=== PATIENT | male | born 1980 | race African-American/Black ===

== ENCOUNTER 2016-12-22 19:18 | Inpatient (IN) | payer OTHER ==
[~2016-12-22] VITALS: Ht 188 cm; Wt 148.8 kg
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
[~2016-12-22 19:18] MED LIST: APAP500 PO; C-500500 MG PO; CEFDINIR300 MG PO; CEFTIN 250 MG250 MG PO; CERTAGEN TABLE1 EACH PO; CIPRO PO; CIPROFLOXACIN500 M1 PO; COLACE100 MG PO; HYDROCODON-ACE1 EAC7 PO; LEVAQUIN 500 M500 M2 PO; NOHOMEMEDICATIONS; NORCO 5-325 TA1 EACH PO; ORAZINC220 MG PO; POLYETHYLENE GLY1 G1 PO
[2016-12-22 19:20] VITALS: BP 136/77
[2016-12-22] MEDS ORDERED: KEFLEX500 M1 PO (19:39)
[2016-12-22 20:00] VITALS: BP 197/81
[2016-12-22 20:14] LABS: URINE BILIRUBIN 1+ (Negative); URINE BLOOD 1+ (Negative); URINE COLOR YELLOW; URINE GLUCOSE-RANDOM* NEGATIVE (Negative); URINE KETONES TRACE (Negative); URINE LEUKOCYTES-REFLEX 3+ (Negative); URINE PROTEIN (DIPSTICK) 1+ (Negative)
[2016-12-22 20:21] LABS: CASTS None Seen /LPF (None Seen); CRYSTALS None Seen /LPF (None Seen); SQUAMOUS 4-10 Moderate /LPF (0-3); URINE RBC 0-2 Rare /HPF (0-2); URINE WBC-REFLEX >25 Many /HPF (0-5)
[2016-12-22 20:32] LABS: ABSOLUTE NEUTROPHILS 9.7 thou/uL (1.4-8.2); BASOPHILS 0.7 % (0.0-2.0); EOSINOPHILS 1.6 % (0.0-3.0); HEMATOCRIT 37.1 % (42.0-52.0); HEMOGLOBIN 12.1 gm/dL (14.0-18.0); LYMPHOCYTES 15.3 % (24.0-44.0); MANUAL DIFF NO; MCH 27.2 pg (26.0-34.0); MCHC 32.5 g/dL (28.0-37.0); MCV 83.6 fL (80.0-100.0); MONOCYTES 6.3 % (1.0-8.0); PLATELET COUNT 244 thou/uL (150-400); POLYS 76.1 % (36.0-66.0); RBC 4.44 mil/uL (4.50-6.00); RDW 17.7 % (10.5-14.5); WBC 12.8 thou/uL (4.0-11.0)
[2016-12-22 20:38] LABS: CREATININE 0.9 mg/dL (0.6-1.3)
[2016-12-22 22:29] VITALS: BP 134/64
[2016-12-22 23:10] VITALS: BP 133/66
[2016-12-23 03:53] VITALS: BP 113/53
[2016-12-23 08:55] VITALS: BP 106/69
[2016-12-23 11:15] LABS: ABSOLUTE NEUTROPHILS 7.4 thou/uL (1.4-8.2); BASOPHILS 0.6 % (0.0-2.0); EOSINOPHILS 1.8 % (0.0-3.0); HEMOGLOBIN 11.2 gm/dL (14.0-18.0); LYMPHOCYTES 19.7 % (24.0-44.0); MCH 26.8 pg (26.0-34.0); MCHC 32.1 g/dL (28.0-37.0); MCV 83.5 fL (80.0-100.0); MONOCYTES 8.3 % (1.0-8.0); PLATELET COUNT 236 thou/uL (150-400); POLYS 69.6 % (36.0-66.0); RBC 4.19 mil/uL (4.50-6.00); RDW 17.7 % (10.5-14.5); WBC 10.6 thou/uL (4.0-11.0)
[2016-12-23 11:16] LABS: MANUAL DIFF NO
[2016-12-23 11:24] LABS: CALCIUM 8.5 mg/dL (8.5-10.1); CREATININE 0.8 mg/dL (0.6-1.3); POTASSIUM 3.8 mmol/L (3.5-5.1)
[2016-12-23 15:30] VITALS: BP 101/61
[2016-12-23 21:45] VITALS: BP 126/66
[2016-12-24 04:00] VITALS: BP 118/53
[2016-12-24 08:17] VITALS: BP 112/50
[2016-12-24 12:07] LABS: HEMATOCRIT 33.9 % (42.0-52.0); HEMOGLOBIN 10.8 gm/dL (14.0-18.0); MCH 26.7 pg (26.0-34.0); MCV 83.6 fL (80.0-100.0); RBC 4.05 mil/uL (4.50-6.00); WBC 7.9 thou/uL (4.0-11.0)
[2016-12-24 12:28] LABS: CALCIUM 8.7 mg/dL (8.5-10.1); CREATININE 0.8 mg/dL (0.6-1.3); POTASSIUM 3.9 mmol/L (3.5-5.1)
[2016-12-24 20:00] VITALS: BP 129/72
[2016-12-25 04:00] VITALS: BP 131/68
[2016-12-25 06:24] LABS: HEMATOCRIT 34.8 % (42.0-52.0); HEMOGLOBIN 11.2 gm/dL (14.0-18.0); MCH 26.9 pg (26.0-34.0); MCHC 32.2 g/dL (28.0-37.0); MCV 83.5 fL (80.0-100.0); RBC 4.17 mil/uL (4.50-6.00); RDW 17.2 % (10.5-14.5); WBC 7.6 thou/uL (4.0-11.0)
[2016-12-25 06:33] LABS: CALCIUM 8.6 mg/dL (8.5-10.1); CREATININE 0.8 mg/dL (0.6-1.3); POTASSIUM 3.9 mmol/L (3.5-5.1)
[2016-12-25 07:30] VITALS: BP 117/52
[2016-12-25] MEDS ORDERED: ZOSYN 3.373.375 GM/1 IV (15:34)
[2016-12-25] MEDS ORDERED: ENOXAPARIN40 MG/0.1 SUBQ (15:34)
[2016-12-25 16:00] VITALS: BP 136/48
== END 2016-12-25 18:33 | DRG 854 ==
LOC: ER 19:18 → 4E 21:56 → EROBS 21:56 → 4E 23:00
PROVIDERS: Emergency Medicine; Family Medicine
PROC: 0JBN0ZZ Excision of Right Lower Leg Subcutaneous Tissue and Fascia, Open Approach (ICD-10-PCS; principal; 2016-12-24)
DX: A41.9 Sepsis, unspecified organism (principal); N39.0 Urinary tract infection, site not specified; G82.20 Paraplegia, unspecified; L89.890 Pressure ulcer of other site, unstageable; R53.81 Other malaise; Z83.3 Family history of diabetes mellitus; Z82.49 Family history of ischemic heart disease and other diseases of the circulatory system; Z80.1 Family history of malignant neoplasm of trachea, bronchus and lung; Z87.891 Personal history of nicotine dependence
CPT/HCPCS: 10084

== ENCOUNTER → 2017-03-04 | Outpatient (CLI) | payer OTHER ==
[~2017-03-04] MED LIST changes: +ENOXAPARIN40 MG/0.1 SUBQ; +KEFLEX500 M1 PO; +ZOSYN 3.373.375 GM/1 IV
== END ==
LOC: HYPER 09-25 07:20
DX: L97.521 Non-pressure chronic ulcer of other part of left foot limited to breakdown of skin (principal); L89.894 Pressure ulcer of other site, stage 4; E66.9 Obesity, unspecified; G82.21 Paraplegia, complete; E78.5 Hyperlipidemia, unspecified; I10 Essential (primary) hypertension; J44.9 Chronic obstructive pulmonary disease, unspecified; R60.9 Edema, unspecified; M86.68 Other chronic osteomyelitis, other site; F17.210 Nicotine dependence, cigarettes, uncomplicated; F12.10 Cannabis abuse, uncomplicated

== ENCOUNTER → 2017-03-25 | Outpatient (CLI) | payer OTHER | LOC: HYPER 07:16 | DX: L89.894 Pressure ulcer of other site, stage 4 (principal); L89.890 Pressure ulcer of other site, unstageable; G82.21 Paraplegia, complete; E66.9 Obesity, unspecified; E78.5 Hyperlipidemia, unspecified; J44.9 Chronic obstructive pulmonary disease, unspecified; M86.8X8 Other osteomyelitis, other site; F17.210 Nicotine dependence, cigarettes, uncomplicated ==

== ENCOUNTER → 2017-04-29 | Outpatient (CLI) | payer OTHER | LOC: HYPER 04-16 07:00 | DX: L89.894 Pressure ulcer of other site, stage 4 (principal); L89.893 Pressure ulcer of other site, stage 3; L89.890 Pressure ulcer of other site, unstageable; E78.5 Hyperlipidemia, unspecified; I10 Essential (primary) hypertension; G82.20 Paraplegia, unspecified; J44.9 Chronic obstructive pulmonary disease, unspecified; M86.8X8 Other osteomyelitis, other site; E66.9 Obesity, unspecified; Z68.38 Body mass index [BMI] 38.0-38.9, adult; M21.6X2 Other acquired deformities of left foot; M21.6X1 Other acquired deformities of right foot; F17.210 Nicotine dependence, cigarettes, uncomplicated ==

== ENCOUNTER → 2017-05-14 | Outpatient (CLI) | payer OTHER | LOC: HYPER 07:10 | DX: L89.894 Pressure ulcer of other site, stage 4 (principal); L89.893 Pressure ulcer of other site, stage 3; L89.890 Pressure ulcer of other site, unstageable; E66.9 Obesity, unspecified; G82.21 Paraplegia, complete; Z68.38 Body mass index [BMI] 38.0-38.9, adult; E78.5 Hyperlipidemia, unspecified; I10 Essential (primary) hypertension; J44.9 Chronic obstructive pulmonary disease, unspecified; M86.8X8 Other osteomyelitis, other site; F17.210 Nicotine dependence, cigarettes, uncomplicated ==

== ENCOUNTER → 2017-06-18 | Outpatient (CLI) | payer OTHER | LOC: HYPER 06-04 07:15 | DX: L89.894 Pressure ulcer of other site, stage 4 (principal); L89.890 Pressure ulcer of other site, unstageable; G82.21 Paraplegia, complete; E66.9 Obesity, unspecified; Z68.38 Body mass index [BMI] 38.0-38.9, adult; E78.5 Hyperlipidemia, unspecified; I10 Essential (primary) hypertension; J44.9 Chronic obstructive pulmonary disease, unspecified; M86.8X8 Other osteomyelitis, other site; F17.210 Nicotine dependence, cigarettes, uncomplicated ==

== ENCOUNTER → 2017-07-27 | Outpatient (CLI) | payer OTHER | LOC: HYPER 07-16 07:11 | DX: L89.894 Pressure ulcer of other site, stage 4 (principal); E66.9 Obesity, unspecified; G82.21 Paraplegia, complete; E78.5 Hyperlipidemia, unspecified; J44.9 Chronic obstructive pulmonary disease, unspecified; M86.68 Other chronic osteomyelitis, other site; F17.210 Nicotine dependence, cigarettes, uncomplicated ==

== ENCOUNTER → 2017-07-28 | Outpatient (CLI) | payer OTHER | LOC: RAD 15:19 | DX: M86.372 Chronic multifocal osteomyelitis, left ankle and foot (principal); L89.894 Pressure ulcer of other site, stage 4 ==

== ENCOUNTER → 2017-08-11 | Outpatient (CLI) | payer OTHER | LOC: HYPER 07:05 | DX: L89.894 Pressure ulcer of other site, stage 4 (principal); G82.21 Paraplegia, complete; E66.9 Obesity, unspecified; E78.5 Hyperlipidemia, unspecified; I10 Essential (primary) hypertension; J44.9 Chronic obstructive pulmonary disease, unspecified; M86.9 Osteomyelitis, unspecified; F17.210 Nicotine dependence, cigarettes, uncomplicated; F12.90 Cannabis use, unspecified, uncomplicated; Z68.38 Body mass index [BMI] 38.0-38.9, adult ==

== ENCOUNTER 2019-05-11 20:54 | Inpatient (IN) | payer OTHER ==
[~2019-05-11] VITALS: Ht 188 cm; Wt 145.2 kg
[~2019-05-11 20:54] MED LIST changes: +SSD CREAM 1% 5050 GM TOP; +VANCO 1.251.25 GM/25 IVPB
[2019-05-11 20:56] VITALS: BP 124/80
--- NOTE | 2019-05-11 23:05 | NUR ---
XRAY AT BEDSIDE
[2019-05-12 01:32] LABS: ABSOLUTE NEUTROPHILS 11.8 thou/uL (1.4-8.2); BASOPHILS 0.8 % (0.0-2.0); EOSINOPHILS 1.3 % (0.0-3.0); HEMATOCRIT 35.8 % (42.0-52.0); HEMOGLOBIN 11.1 gm/dL (14.0-18.0); LYMPHOCYTES 13.4 % (24.0-44.0); MCH 25.7 pg (26.0-34.0); MCV 82.7 fL (80.0-100.0); MONOCYTES 6.7 % (1.0-8.0); PLATELET COUNT 308 thou/uL (150-400); POLYS 77.8 % (36.0-66.0); RBC 4.33 mil/uL (4.50-6.00); RDW 18.1 % (10.5-14.5); WBC 15.1 thou/uL (4.0-11.0)
[2019-05-12 01:41] LABS: CREATININE 0.8 mg/dL (0.7-1.3); POTASSIUM 3.3 mmol/L (3.5-5.1)
[2019-05-12 01:46] LABS: APTT 23.3 Seconds (24.5-32.8); PROTIME 10.5 Seconds (9.3-11.4)
[2019-05-12] MEDS ORDERED: NOHOMEMEDICATIONS (03:49)
[2019-05-12 08:43] VITALS: BP 114/87
[2019-05-12 09:28] VITALS: BP 114/87; BP 171/83
[2019-05-12 09:55] VITALS: BP 114/87
[2019-05-12 10:52] VITALS: BP 127/55
[2019-05-12 15:24] VITALS: BP 106/53
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
[2019-05-12 20:20] VITALS: BP 151/73
[2019-05-13 03:55] VITALS: BP 124/57
[2019-05-13 05:16] LABS: HEMATOCRIT 29.3 % (42.0-52.0); HEMOGLOBIN 9.3 gm/dL (14.0-18.0); MCH 26.8 pg (26.0-34.0); MCHC 31.9 g/dL (28.0-37.0); MCV 83.9 fL (80.0-100.0); RBC 3.49 mil/uL (4.50-6.00); RDW 18.2 % (10.5-14.5); WBC 9.6 thou/uL (4.0-11.0)
[2019-05-13 05:30] LABS: CALCIUM 8.1 mg/dL (8.5-10.1); CREATININE 0.7 mg/dL (0.7-1.3)
--- NOTE | 2019-05-13 06:34 | NUR ---
ASSUMED CARE AT 1900, ASSESSMENT COMPLETED. PT REPORTS HEADACHE; GIVEN TYLENOL, WHICH HELPED RELIEVE HEADACHE. DENIED NAUSEA OR SOB. ASKED PT MULTIPLE TIMES ABOUT REPOSITIONING IN BED, BUT HE DECLINED; WOULD SHIFT HIMSELF SLIGHTLY AND RAISE/LOWER HOB. DRESSING TO LEFT CALF INTACT. DAY SHIFT RN TOOK PHOTOS AND DRESSED SMALL, OOZING WOUNDS TO LEFT 4TH AND 5TH TOES. NO OTHER CONCERNS, WILL CONTINUE TO MONITOR.
[2019-05-13 07:11] VITALS: BP 104/69
--- NOTE | 2019-05-13 10:34 | NUR ---
WOUND CARE FOLLOW UP; ROUNDING WITH DR SPEAR,HO TAPE WEAVER AND WILIAN DOUBLE SURFACE OPERATOR. WOUNDS ARE STABLE TODAY, DECREASED DRAINAGE. NO ODOR OR ANY S/S OF INFECTION. PLAN IS TO DISCHARGE TODAY OR TOMMOROW. CONT. CURRENT POC DISCUSSED WITH RN
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
--- NOTE | 2019-05-13 15:14 | NUR ---
ORDERS RECEIVED FOR EVAL AND TREAT TO SEE IF Pt WAS ABLE TO PERFORM SLIDING BOARD TRANSFER. PLACED LT KNEE IMMOBILIZER ON LT LE AND ADJUSTED TO CORRECT SIZE. Pt WANTED THERAPIST TO COME BACK AFTER HE CLEANED UP. 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 Pt DECLINING ATTEMPTS TO EVALUATE. DISCUSSED WITH ATTRACTIONS ASSOCIATE
[2019-05-13 16:09] VITALS: BP 119/69
--- NOTE | 2019-05-13 16:15 | NUR ---
PT HAS KNEE IMMOBILIZER TO USE WHEN TRANSFERRING TO HIS . OLGA RICHARDSON WAS ORDERED TO EVAL PT FOR TRANSFER SAFETY WITH THIS DEVICE AND PT DECLINED TO WORK WITH PHYSICAL THERAPY. HE SAYS THINGS ARE NO DIFFERENT THAN BEFORE, I WILL BE ABLE TO DO THIS AND I HAVE PEOPLE THAT CAN HELP ME.
[2019-05-13 20:12] VITALS: BP 112/59
[2019-05-14 03:59] VITALS: BP 125/62
--- NOTE | 2019-05-14 05:54 | NUR ---
PATIENT ALERT AND ORIENTED XE AT BEDSIDE. DESSING ON LOWER EXT D/I. NO C/O PAIN ALL EVENING. SLEPT MOST OF NIGHT.
[2019-05-14 07:55] VITALS: BP 137/76
[2019-05-14 08:00] VITALS: BP 153/90
--- NOTE | 2019-05-14 17:40 | NUR ---
DC ORDERS RECEIVED. IV REMOVED FROMR FA. DC INSTRUCTIONS, F/U APPOINTMEMTS REVIEWED WITH PT. DC WOUND PICS TAKEN, WOUND CARE GIVEN. CREPE BOX TENDER ESCORTED PT BY W/C TO FRONT ENTRANCE.
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
== END 2019-05-14 13:50 | disposition home or self-care (01) | DRG 563 ==
LOC: ER 20:54 → EROBS 05-12 01:13 → 4E 05-12 01:13 → EROBS 05-12 05:51 → 4E 05-12 10:39
PROVIDERS: Emergency Medicine; Nurse Practitioner Family; ADMIT Hospitalist
DX: S82.102A Unspecified fracture of upper end of left tibia, initial encounter for closed fracture (principal); G82.20 Paraplegia, unspecified; F17.210 Nicotine dependence, cigarettes, uncomplicated; L97.529 Non-pressure chronic ulcer of other part of left foot with unspecified severity; I87.2 Venous insufficiency (chronic) (peripheral); Z86.14 Personal history of Methicillin resistant Staphylococcus aureus infection; Z82.49 Family history of ischemic heart disease and other diseases of the circulatory system; Z80.9 Family history of malignant neoplasm, unspecified; W18.39XA Other fall on same level, initial encounter; Y93.89 Activity, other specified; Y92.89 Other specified places as the place of occurrence of the external cause; Y99.8 Other external cause status; Z79.899 Other long term (current) drug therapy
CPT/HCPCS: 10084

== ENCOUNTER → 2019-06-07 | Outpatient (CLI) | payer OTHER | LOC: HYPER 06:51 | DX: L97.222 Non-pressure chronic ulcer of left calf with fat layer exposed (principal); E78.5 Hyperlipidemia, unspecified; I10 Essential (primary) hypertension; M86.8X8 Other osteomyelitis, other site; G82.21 Paraplegia, complete; E66.9 Obesity, unspecified; J44.9 Chronic obstructive pulmonary disease, unspecified; F17.210 Nicotine dependence, cigarettes, uncomplicated; Z68.38 Body mass index [BMI] 38.0-38.9, adult ==

== ENCOUNTER → 2019-06-21 | Outpatient (CLI) | payer OTHER | LOC: HYPER 06:48 | DX: L97.221 Non-pressure chronic ulcer of left calf limited to breakdown of skin (principal); L89.894 Pressure ulcer of other site, stage 4; G82.21 Paraplegia, complete; E66.9 Obesity, unspecified; L84 Corns and callosities; I10 Essential (primary) hypertension; E78.5 Hyperlipidemia, unspecified; M86.8X8 Other osteomyelitis, other site; J44.9 Chronic obstructive pulmonary disease, unspecified; F17.210 Nicotine dependence, cigarettes, uncomplicated; Z68.38 Body mass index [BMI] 38.0-38.9, adult ==

== ENCOUNTER → 2019-07-19 | Outpatient (CLI) | payer OTHER | LOC: HYPER 14:58 | DX: T81.89XA Other complications of procedures, not elsewhere classified, initial encounter (principal); L89.894 Pressure ulcer of other site, stage 4; I10 Essential (primary) hypertension; M86.8X8 Other osteomyelitis, other site; G83.9 Paralytic syndrome, unspecified; G82.21 Paraplegia, complete; E66.9 Obesity, unspecified; L84 Corns and callosities; E78.5 Hyperlipidemia, unspecified; J44.9 Chronic obstructive pulmonary disease, unspecified; F17.210 Nicotine dependence, cigarettes, uncomplicated; Z68.38 Body mass index [BMI] 38.0-38.9, adult; Y92.89 Other specified places as the place of occurrence of the external cause; Y83.8 Other surgical procedures as the cause of abnormal reaction of the patient, or of later complication, without mention of misadventure at the time of the procedure ==

== ENCOUNTER → 2019-08-05 | Outpatient (CLI) | payer OTHER | LOC: HYPER 08:11 | DX: T81.89XD Other complications of procedures, not elsewhere classified, subsequent encounter (principal); L89.894 Pressure ulcer of other site, stage 4; M86.8X8 Other osteomyelitis, other site; E78.5 Hyperlipidemia, unspecified; E66.9 Obesity, unspecified; G82.21 Paraplegia, complete; I10 Essential (primary) hypertension; J44.9 Chronic obstructive pulmonary disease, unspecified; F17.210 Nicotine dependence, cigarettes, uncomplicated; F12.10 Cannabis abuse, uncomplicated; Z68.38 Body mass index [BMI] 38.0-38.9, adult; Y83.8 Other surgical procedures as the cause of abnormal reaction of the patient, or of later complication, without mention of misadventure at the time of the procedure ==